=== PATIENT | male | born 1950 ===

== ENCOUNTER 2022-10-22 13:04 | Day surgery (SDC) | payer MEDICARE ==
[~2022-10-22 13:04] MED LIST: Cefuroxime 10 MG/ML SYRINGE EYELF SCH; Lidocaine 1% PF 2 ML SDV INJECT SCH; Pilocarpine 4% Ophth Soln 15 ML Bot EYELF SCH
[2022-10-22] MEDS: Polymyxin B/Trimethoprim 10 ML Bottle EYELF SCH ×3 (14:15→16:09)
[2022-10-22] MEDS: Brimonidine 0.2% Ophth Soln 15 ML Bottle EYELF SCH ×3 (14:19→16:09)
[2022-10-22] MEDS: Phenylephrine 2.5% Opth Drops 10 mL EYELF SCH ×5 (14:30→15:40)
[2022-10-22] MEDS ORDERED: Ondansetron 4 MG/2 ML SDV IVPUSH PRN (14:33)
[2022-10-22] MEDS: Tropicamide 1% Ophth Soln 15 ML Bottle EYELF SCH ×4 (14:34→15:07)
[2022-10-22] MEDS: Tetracaine HCl/PF 0.5% 4 ML Bottle EYEBOTH SCH ×5 (15:15→15:56)
== END 2022-10-22 16:20 | disposition home or self-care (01) ==
LOC: JD.SDS 13:04
PROVIDERS: ATTEND Ophthalmology
DX: H26.9 Unspecified cataract (principal); I10 Essential (primary) hypertension; M19.90 Unspecified osteoarthritis, unspecified site; Z88.2 Allergy status to sulfonamides; Z79.899 Other long term (current) drug therapy
CPT/HCPCS: 66984; A9270; J0697; V2632; J3490

== ENCOUNTER 2024-12-26 07:16 | Day surgery (SDC) | payer MEDICARE ==
[~2024-12-26 07:16] MED LIST changes: -Cefuroxime 10 MG/ML SYRINGE EYELF SCH; -Lidocaine 1% PF 2 ML SDV INJECT SCH; -Pilocarpine 4% Ophth Soln 15 ML Bot EYELF SCH; +Sodium Chloride 0.9% 10 ML Syringe FLUSH PRN; +Sodium Chloride 0.9% 10 ML Syringe FLUSH SCH
[2024-12-26] MEDS: Lactated Ringers 1,000 ML IV SCH (07:30)
[2024-12-26] MEDS ORDERED: propofoL 500 MG/50 ML 50 ML ONE (08:03)
== END 2024-12-26 09:50 | disposition home or self-care (01) ==
LOC: JD.SDS 07:16
PROVIDERS: ATTEND Surgery
DX: C20 Malignant neoplasm of rectum (principal); K31.89 Other diseases of stomach and duodenum; D64.9 Anemia, unspecified; K92.2 Gastrointestinal hemorrhage, unspecified; I10 Essential (primary) hypertension; Z88.8 Allergy status to other drugs, medicaments and biological substances; Z88.2 Allergy status to sulfonamides; Z87.891 Personal history of nicotine dependence; Z79.899 Other long term (current) drug therapy
CPT/HCPCS: 36415; 43239; 45380; 82378; 88305; 88341; 88342; J2704; J7120; 00813; 99100